=== PATIENT | female | born 1995 | race Caucasian/White ===

== ENCOUNTER 2017-01-07 09:07 | Day surgery (SDC) | payer OTHER ==
[~2017-01-07] VITALS: Ht 157.5 cm; Wt 72.5 kg
--- NOTE | 2017-01-07 07:09 | PCM.HPANE ---
Patient Data Surgeon Admitting Provider: Attending Provider:Abigail Montes MD Primary Care Physician:Other,Physician Other Provider:Theresa Ward Anesthesia Reason for Visit Dysphagia Ht/WT & BMI Body Mass Index Allergies Coded Allergies: latex (Verified Allergy, Unknown, 01/06/17) Medications Reported Medications Ergocalciferol (Vitamin D2) (Vitamin D2)2,000 Unit Nsvcua57,000 Unit PO WEEKLY 01/06/17 Cyanocobalamin/Folic Acid (Vitamin Z39-Xutkj Acid Tablet)1 Each Tablet1 Each PO 01/06/17 Venlafaxine 75 Mg Wfqzkb85 Mg PO BIDWM Ref 0 01/06/17 Trazodone 100 Mg Xzgnli106 Mg PO HS Ref 0 01/06/17 Tramadol 50 Mg Ymmgel44 Mg PO Q4H PRN For Pain Ref 0 01/06/17 Ranitidine 300 Mg Nsqrbdv534 Mg PO DAILY Ref 0 01/06/17 Albuterol HFA (Proair HFA)8.5 Gm Hfa.aer.ad2 Puffs INHALATION Q4H #1 INHALER 01/06/17 Prazosin 2 Mg Capsule2 Mg PO HS 01/06/17 Omeprazole 20 Mg Tablet.dr20 Mg PO DAILY 01/06/17 Multivitamin (Multivitamins)1 Each Capsule1 Each PO 01/06/17 Cetirizine HCl (All Day Allergy)10 Mg Tab.chew10 Mg PO 01/06/17 Lamotrigine 200 Mg Wnjdzu243 Mg PO DAILY Ref 0 01/06/17 Gabapentin 300 Mg Ywjyrbp443 Mg PO TID Ref 0 01/06/17 Ferrous Gluconate 324 Mg Czj580 Mg PO DAILY Ref 0 01/06/17 Diclofenac ER 50 Mg Kfkxze37 Mg PO DAILY 01/06/17 Aripiprazole (Abilify)10 Mg [place]69 Mg PO DAILY Ref 0 01/06/17 Discontinued Reported Medications Ondansetron 4 Mg Tablet4 Mg PO 01/06/17 History Smoking Status: Current Every Day Smoker Have You Smoked inLast 12 mo: Yes Stop/Bang Risk Assessment Category Category 1A: Patient has history of documented sleep apnea, and HAS NOT received any narcotic, sedative or anesthesia administration during this stay. Category 1B: Patient has history of documented sleep apnea, and HAS received any narcotic , sedative or anesthesia administration during this stay Category 2: Patient has SUSPECTED Obstructive Sleep Apnea, and HAS received any narcotic , sedative or anesthesia administration during this stay. Category 3: Patient has SUSPECTED Obstructive Sleep Apnea and HAS NOT received narcotic, sedative or anesthesia administration during this stay. Category 4: Outpatient in Procedural Areas with known sleep apnea or who screen positive for High Risk via the STOP/BANG questionnaire. Exam Exam General Appearance: Alert, Oriented X3, Cooperative, No Acute Distress HEENT/AIRWAY: MP 2 Lungs: Clear to Auscultation, Normal Air Movement Heart: Exam Unremarkable, Regular Rate/Rhythm, No Murmurs/Rubs/Gallops Plan Impression Patient chart reviewed, patient interviewed and anesthestic plan with risks, benefits, and alternatives discussed, and informed consent obtained. ASA Physical Status: ASA2 Mod Systemic Disease Anesthetic Plan: MAC Bene/Risks/Altern/Consents: Yes HP Complete Prior to Induction: Yes Henry Vallejo MD Jan 07, 2017 07:09
[~2017-01-07 09:07] MED LIST: ALBU8.5H2 INHALATION; ARIP10TA14 PO; CETI10TA27 PO; CYAN1TAB42 PO; DICL50TA7 PO; ERGO2000 PO; FEG324 PO; GABA-502 PO; LAMO200T2 PO; Lactated Ringer's 1,000 ML IV ONE; MULT1CAP33 PO; OMEP20TA86 PO; ONDA-53 PO; PRAZ2CAP2 PO; RANI300C PO; TRAM50TA2 PO; TRAZ-118 PO; VENL75TA3 PO
[2017-01-07] MEDS ORDERED: fentaNYL-PF 50 mCg/mL 2 mL Inj ONE (09:08)
[2017-01-07] MEDS ORDERED: Propofol 10,000 mCg/mL 20 mL Inj ONE (09:08)
[2017-01-07 10:28] VITALS: BP 105/64; PULSE 86; RESP 17; O2SAT 94
[2017-01-07] MEDS ORDERED: Lactated Ringer's 1,000 ML IV SCH (11:36)
--- NOTE | 2017-01-07 11:36 | PCM.ANEP1 ---
Post Anesthesia Phase 1 PACU Phase 1 Assessment Vital Signs Vital Signs Date Time Temp Pulse Resp B/P Pulse Ox O2 Delivery O2 Flow Rate FiO2 01/07/17 10:28 86 17 105/64 94 Room Air Anesthetic Administered: MAC Level of Alertness: Awake, talking Pain: No Oxygen Delivery: Nasal Cannula Lungs: Clear to Auscultation, Normal Air Movement Henry Vallejo MD Jan 07, 2017 11:36
--- NOTE | 2017-01-07 11:36 | PCM.ANEP2 ---
Post Anesthesia Evaluation ASA/CMS Post Anesthesia VS in Patient's Normal Range?: Yes Resp Stable; Airway Patent?: Yes CV Function & Hydration Stable: Yes Mental Status Recovered?: Yes Pain control Satisfactory?: Yes N/V Control Satisfactory?: Yes Henry Vallejo MD Jan 07, 2017 11:36
[2017-01-07] MEDS ORDERED: MetoCLOpramide 5 mg/mL 2 mL Inj IVPUSH PRN (11:40)
[2017-01-07] MEDS ORDERED: Ondansetron 2 mg/mL 2 mL Inj IVPUSH PRN (11:40)
[2017-01-07 11:42] VITALS: BP 98/58; PULSE 77; RESP 14; O2SAT 95
[2017-01-07 11:53] VITALS: BP 93/48; PULSE 76; RESP 15; O2SAT 97
--- NOTE | 2017-01-07 14:01 | ENDO ---
[address] [address] ENDOSCOPY PROCEDURE PATIENT: CHERY FERNANDEZ : 1995 MR#: [id number] ADMIT: 01/07/2017 JOB ID: [id number] DATE OF SERVICE: 01/07/2017 PROCEDURE PERFORMED: Esophagogastroduodenoscopy. INDICATION: Dysphagia. ASA CLASSIFICATION, MALLAMPATI SCORE AND MEDICATIONS: The patient's ASA classification, Mallampati score and medications as per anesthesia note. INSTRUMENT USED: [id number]. PROCEDURE DETAILS: After informed consent was obtained, the patient was brought into the GI suite, where she was placed on oxygen via nasal cannula and monitored with continuous pulse oximeter, telemetry, and blood pressure monitoring. A time-out was performed. Then, she was placed in the left lateral decubitus position, and medications were administered for sedation. A bite block was passed. A standard EGD scope was inserted through the bite block and advanced under direct visualization to the second portion of the duodenum without difficulty. FINDINGS: 1. Normal appearing duodenal bulb, first and second portions. 2. Normal appearing pylorus. 3. In the antrum and body of the stomach, mucosa had an erythematous appearance suggestive of gastritis. Multiple random biopsies were obtained. 4. Retroflexed views in the gastric body revealed normal appearing cardia and fundus. 5. Normal appearing GE junction with a regular Z-line at 35 cm. 6. Normal appearing esophagus. 7. Multiple random biopsies were obtained in the midesophagus. IMPRESSION: 1. Gastritis. 2. Otherwise normal exam to second portion of duodenum. RECOMMENDATIONS: 1. Await biopsy results. 2. PPI daily. 3. Follow up in GI clinic. COMPLICATIONS: None. ESTIMATED BLOOD LOSS: Less than 5 mL.
--- NOTE | 2017-01-08 15:40 | PATH ---
SURGICAL PATHOLOGY Attending Physician:Selvin Cali CASE STATUS: Signed Out PATIENT NAME: CHERY FERNANDEZ PID: [id number] : 1995 DATE COLLECTED:01/07/2017 19:41 SPECIMEN: 1: Esophagus, Biopsy 2: Gastric, Biopsy CLINICAL HISTORY: 1). MID ESOPHAGUS BIOPSY 2). GASTRIC BIOPSY FINAL DIAGNOSIS: 1. Mid-esophagus Biopsy: Squamous mucosa with no diagnostic alterations. Negative for intestinal metaplasia. Negative for inflammation, dysplasia, and malignancy. 2. Gastric Biopsy: Gastric body mucosa with no diagnostic alterations. Negative for Helicobacter organisms. Negative for intestinal metaplasia. Negative for dysplasia and malignancy. ICD10 R13.10 GROSS DESCRIPTION: The specimen is received in two formalin filled containers labeled with the patient's name. 1). The specimen is sublabeled "mid esophagus" and consists of 4 tiny portions of tissue which aggregate to 0.3 x 0.2 x 0.2 CM. The specimen is entirely submitted in cassette 1A. 2). The specimen is sublabeled "gastric" and consists of 3 portions of tissue which aggregate to 0.3 x 0.3 x 0.3 CM. The specimen is entirely submitted in cassette 2A. 01/07/[address] [facility] MICRO DESCRIPTION: Please see diagnosis. ICD-9 CODES: CPT CODES: 1: 47302 2: 78245 Electronically Signed Out Britany Shah MD [facility], [place] [address] Technical component performed at [facility], [address] [place] [address] Ave[address], [address]
== END 2017-01-07 23:59 | disposition home or self-care (01) ==
LOC: END 09:07
PROVIDERS: ATTEND Internal Medicine Gastroenterology
DX: R13.10 Dysphagia, unspecified (principal); K29.70 Gastritis, unspecified, without bleeding; K21.9 Gastro-esophageal reflux disease without esophagitis; K59.00 Constipation, unspecified; F43.10 Post-traumatic stress disorder, unspecified; F31.81 Bipolar II disorder; G47.00 Insomnia, unspecified; J45.909 Unspecified asthma, uncomplicated; M25.562 Pain in left knee; Z79.51 Long term (current) use of inhaled steroids
CPT/HCPCS: 43239; 88305; J2250; J3010; J7120